=== PATIENT | female | born 1980 | race Caucasian/White ===

== ENCOUNTER 2017-11-05 22:38 | Emergency (ER) | payer MEDICAID, MEDICARE ==
[~2017-11-05] VITALS: Ht 170.2 cm; Wt 204.1 kg
[2017-11-05 22:42] VITALS: BP 157/83
[2017-11-05] MEDS ORDERED: DECADRON IH STA (23:12)
[2017-11-05] MEDS ORDERED: DUONEB 0.5 MG-3 MG/3 ML SOLN IH STA (23:12)
--- NOTE | 2017-11-05 23:17 | ER.PDOC ---
General Chief Complaint: Dyspnea/Respdistress Stated Complaint: DYSPNEA Time seen by MD: 23:00 Source: patient Exam Limitations: no limitations History of Present Illness Initial Comments Pt morbidly obese, started with severe dyspnea about 1 week ago, cough no expectoration Timing/Duration: 1 week Severity: severe Activities at Onset: none Prior Episodes/Possible Cause: frequent episodes Allergies: Coded Allergies: cephalexin (Verified Allergy, Unknown, RESP FAILURE, 10/29/17) fluoxetine (Verified Allergy, Unknown, SWELLING, 10/29/17) sertraline (Verified Allergy, Unknown, SWELLING, 10/29/17) sulfamethoxazole (Verified Allergy, Unknown, SWELLING, 10/29/17) trimethoprim (Verified Allergy, Unknown, SWELLING, 10/29/17) Past Medical History Medical History: asthma, high cholesterol, hypertension, thyroid disease Surgical History: cholecystectomy, tonsillectomy LMP (females 10-50): 3 weeks Social History Smoking: non-smoker Alcohol Use: none Drug Use: none Review of Systems Constitutional: no symptoms reported EENTM: no symptoms reported Respiratory: see HPI Cardiovascular: no symptoms reported Gastrointestinal: no symptoms reported Genitourinary: no symptoms reported Musculoskeletal: no symptoms reported Skin: no symptoms reported Psychiatric/Neurological: no symptoms reported Endocrine: no symptoms reported Hematologic/Lymphatic: no symptoms reported Physical Exam General Appearance: Mild Distress HEENT: PERRL/EOMI, Normal ENT Inspection, TMs Normal, Pharynx Normal Neck: Non-Tender, Full Range of Motion, Supple, Normal Inspection Respiratory: decreased breath sounds, rhonchi (bilaterally) Cardiovascular: Normal Peripheral Pulses, Regular Rate, Rhythm, No Edema, No Gallop, No JVD, No Murmur Gastrointestinal: Normal Bowel Sounds, No Organomegaly, No Pulsatile Mass, Non Tender, Soft 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, No Motor/Sensory Deficits, Alert, Normal Mood/Affect, Oriented x 3 Skin: Normal Color, Warm/Dry Results/Orders Results/Orders Laboratory Tests Test 11/05/17 23:35 11/06/17 00:39 White Blood Count 8.3 10^3/uL (4.5-11.0) Red Blood Count 4.72 10^6/uL (4.00-5.20) Hemoglobin 14.0 g/dL (12.0-15.0) Hematocrit 44.6 % (36.0-46.0) Mean Corpuscular Volume 94.5 fL (78-100) Mean Corpuscular Hemoglobin 29.7 pg (26-34) Mean Corpuscular Hemoglobin Concent 31.4 g/dL (33-37) Red Cell Distribution Width 15.8 % (11.5-14.5) Platelet Count 262 10^3/uL (150-400) Mean Platelet Volume 9.7 fL (7.8-11.0) Neutrophils (%) (Auto) 74.1 % (41.0-85.0) Lymphocytes (%) (Auto) 17.1 % (24.0-44.0) Monocytes (%) (Auto) 7.9 % (5.0-12.0) Neutrophils # (Auto) 6.1 10^3/uL (1.8-7.7) Lymphocytes # (Auto) 1.4 10^3/uL (1.0-4.8) Monocytes # (Auto) 0.7 10^3/uL (0.3-0.8) Absolute Immature Granulocyte (auto 0.02 10^3 u/L (0-2) Eosinophils % 0.6 % (0.0-5.0) Basophils % 0.1 % (0.0-0.2) Basophils # 0.0 10^3/uL (0.0-0.1) Eosinophil Count 0.1 10^3/uL (0.0-0.2) Sodium Level 141 mmol/L (132-145) Potassium Level 4.0 mmol/L (3.6-5.2) Chloride Level 103.0 mmol/L (96-109) Carbon Dioxide Level 30.4 mmol/L (20.0-32) Anion Gap 11.6 Blood Urea Nitrogen 7 mg/dL (7-18) Creatinine 0.69 mg/dL (0.59-1.40) Estimated GFR () 117.2 (>/=60) BUN/Creatinine Ratio 10.0 Glucose Level 146 mg/dL (70-110) Calcium Level 8.6 mg/dL (8.4-10.5) Total Bilirubin 0.3 mg/dL (0.2-1.0) Aspartate Amino Transf (AST/SGOT) 18 U/L (0-35) Alanine Aminotransferase (ALT/SGPT) 29 U/L (12-78) Alkaline Phosphatase 66 U/L (50-136) Total Creatine Kinase 22 U/L (26-192) Creatine Kinase MB < 0.5 ng/mL (0.5-3.6) Total Protein 6.9 g/dL (6.4-8.2) Albumin 3.1 g/dL (3.4-5.0) Globulin 3.8 Percent Immature Gran (Cell Imm) 0.20 % (0.00-0.50) Blood Gas Sample Site RR Blood Gas pH 7.375 (7.350-7.450) Blood Gas PCO2 45.7 mmHg (35.0-45.0) Blood Gas PO2 57.5 mmHg (75.0-100.0) Blood Gas HCO3 26.1 mmol/L (22.0-26.0) Blood Gas Base Excess 0.5 mmol/L (-2.0-2.0) Lopez Test POSITIVE Arterial Blood Oxygen Saturation 89.5 % (95-) Carboxyhemoglobin 3.6 % (0.5-1.5) Methemoglobin 0.2 % (0.2-0.6) Total Hemoglobin 14.8 % (13.5-17.5) Lactic Acid (Blood Gas) 2.4 MMOL/L (0.5-1.0) Blood Gas Temperature 37.0 Oxygen Delivery Method (LAB) NASAL CANNULA FiO2 28 % (20-101) Bicarbonate 27.5 mmol/L (23-27) Administered Medications Medications (Trade) Dose Ordered Sig/Marli Route PRN Reason Start Time Stop Time Status Last Admin Dose Admin Albuterol/ Ipratropium (Duoneb 0.5 Mg-3 Mg/3 ml Soln) 3 ml STAT STAT IH 11/05/17 23:12 11/05/17 23:15 DC 11/05/17 23:36 Dexamethasone Sodium Phosphate (Decadron) 4 mg STAT STAT IH 11/05/17 23:12 11/05/17 23:15 DC 11/05/17 23:36 Ketorolac Tromethamine (Toradol) 60 mg OT ONCE IM 11/06/17 00:30 11/06/17 00:31 DC 11/06/17 00:15 Departure Time of Disposition: 01:33 Disposition: 01 HOME, SELF-CARE Impression: Primary Impression: Dyspnea Additional Impressions: Bronchitis Hypoxia Morbid (severe) obesity with alveolar hypoventilation Condition: Stable Referrals: NAE ODONNELL MD (PCP) PRIMARY CARE PROVIDER Duration or Time Spent with Pa: 25 Problem Qualifiers NILA PEDRAZA MD Nov 05, 2017 23:17
[2017-11-05 23:21] VITALS: BP 144/70
[2017-11-05] MEDS ORDERED: DUONEB 0.5 MG-3 MG/3 ML SOLN IH ONE (23:23)
[2017-11-05] MEDS ORDERED: DECADRON ONE (23:31)
[2017-11-05 23:40] LABS: BASOPHIL % 0.1 % (0.0-0.2); EOSINOPHIL # 0.1 10^3/uL (0.0-0.2); EOSINOPHIL % 0.6 % (0.0-5.0); LYMPHOCYTES # 1.4 10^3/uL (1.0-4.8); LYMPHOCYTES % 17.1 % (24.0-44.0); MEAN CELL HGB 29.7 pg (26-34); MEAN CELL HGB CONCENTRATION 31.4 g/dL (33-37); MEAN CORP VOLUME 94.5 fL (78-100); MEAN PLATELET VOLUME 9.7 fL (7.8-11.0); MONOCYTES # 0.7 10^3/uL (0.3-0.8); MONOCYTES % 7.9 % (5.0-12.0); NEUTROPHIL # 6.1 10^3/uL (1.8-7.7); NEUTROPHILS % 74.1 % (41.0-85.0); RED CELL DISTRIBUTION WIDTH 15.8 % (11.5-14.5); WHITE BLOOD CELL 8.3 10^3/uL (4.5-11.0)
--- NOTE | 2017-11-05 23:50 | NUR ---
RT RT GIVING BREATHING TX AT THIS TIME.
[2017-11-06 00:10] LABS: ALANINE AMINOTRANSFERASE(ML) 29 U/L (12-78); ALKALINE PHOSPHATASE 66 U/L (50-136); ASPARTATE AMINO TRANSFERASE 18 U/L (0-35); CALCIUM 8.6 mg/dL (8.4-10.5); CARBON DIOXIDE 30.4 mmol/L (20.0-32); GLUCOSE 146 mg/dL (70-110)
--- NOTE | 2017-11-06 00:11 | DIREP ---
PROCEDURE:CHEST 1 VIEW COMPARISON:[facility], CR, XRAY CHEST SINGLE VW, 10/29/2017, 03:30 PM. INDICATIONS:Dyspnea FINDINGS: LUNGS/PLEURA:No consolidation. No effusion. No lateral. VASCULATURE:Normal. Unremarkable pulmonary vasculature. CARDIAC:Borderline cardiomegaly MEDIASTINUM:Normal. No visible mass or adenopathy. BONES:Normal. No fracture or visible bony lesion. OTHER:Negative. CONCLUSION:No infiltrate or effusion. Borderline cardiomegaly. Dictated by: Hector Lin MD on 11/06/2017 at 00:08 AM
[2017-11-06] MEDS ORDERED: TORADOL ONE (00:13)
[2017-11-06 00:22] VITALS: BP 144/95
[2017-11-06] MEDS ORDERED: TORADOL IM ONE (00:30)
[2017-11-06 01:00] LABS: ABG PCO2 45.7 mmHg (35.0-45.0); ABG PH 7.375 (7.350-7.450); BE(B) 0.5 mmol/L (-2.0-2.0); HCO3act 26.1 mmol/L (22.0-26.0); pO2 57.5 mmHg (75.0-100.0)
--- NOTE | 2017-11-06 01:05 | NUR ---
O2 DR. PEOPLES INCREASED O2 TO 4LPM PER NC
[2017-11-06 01:22] VITALS: BP 125/76
[2017-11-06] MEDS ORDERED: CLEOCIN PO STA (01:58)
[2017-11-06] MEDS ORDERED: CLEOCIN ONE (01:58)
--- NOTE | 2017-11-06 02:00 | NUR ---
DISCHARGE DISCHARGE INSTRUCTIONS GIVEN TO PATIENT AND MOTHER. PATIENT WILL NEED O2 TO WEAR HOME HER PORTABLE TANK IS AT HOME. PATIENT STATES THAT SHE IS UNABLE TO WALK AND SHE IS UNABLE TO SIT UPRIGHT ON HER OWN. INSTRUCTED THAT WE WOULD HAVE TO CALL EMS TO TRANSFER BACK HOME.
[2017-11-06 02:08] VITALS: BP 144/71
--- NOTE | 2017-11-06 02:27 | NUR ---
[facility] DISPATCHED
--- NOTE | 2017-11-06 02:40 | NUR ---
[facility] ARRIVED TO TRANSPORT PATIENT BACK HOME
[2017-11-06 02:44] VITALS: BP 144/71
== END 2017-11-06 01:55 | disposition home or self-care (01) ==
LOC: ER 22:38
DX: J40 Bronchitis, not specified as acute or chronic (principal); E66.2 Morbid (severe) obesity with alveolar hypoventilation; E78.00 Pure hypercholesterolemia, unspecified; R09.02 Hypoxemia; I10 Essential (primary) hypertension; E07.9 Disorder of thyroid, unspecified; Z88.2 Allergy status to sulfonamides; Z90.49 Acquired absence of other specified parts of digestive tract; Z90.89 Acquired absence of other organs; Z68.45 Body mass index [BMI] 70 or greater, adult
CPT/HCPCS: 36415 ×2; 36600; 71045; 80053; 82550; 82553; 82803; 85025; 94640; 96372; 99285; J1100; J1885; J7620

== ENCOUNTER 2017-11-07 20:13 | Emergency (ER) | payer MEDICARE ==
[~2017-11-07] VITALS: Ht 170.2 cm; Wt 204.1 kg
[2017-11-07 20:20] VITALS: BP 170/86
[2017-11-07 20:49] LABS: BASOPHIL % 0.3 % (0.0-0.2); EOSINOPHIL # 0.1 10^3/uL (0.0-0.2); EOSINOPHIL % 0.6 % (0.0-5.0); HEMOGLOBIN 14.4 g/dL (12.0-15.0); LYMPHOCYTES # 2.7 10^3/uL (1.0-4.8); LYMPHOCYTES % 26.5 % (24.0-44.0); MEAN CELL HGB 29.5 pg (26-34); MEAN CELL HGB CONCENTRATION 30.7 g/dL (33-37); MEAN CORP VOLUME 96.1 fL (78-100); MEAN PLATELET VOLUME 9.8 fL (7.8-11.0); NEUTROPHIL # 6.4 10^3/uL (1.8-7.7); NEUTROPHILS % 61.9 % (41.0-85.0); RED CELL DISTRIBUTION WIDTH 16.5 % (11.5-14.5); WHITE BLOOD CELL 10.3 10^3/uL (4.5-11.0)
--- NOTE | 2017-11-07 20:49 | NUR ---
Oxygen Places pt. on [address] per Dr. Vitaliy solitario.
[2017-11-07 21:14] VITALS: BP 132/78
[2017-11-07 21:17] LABS: ALANINE AMINOTRANSFERASE(ML) 47 U/L (12-78); ALKALINE PHOSPHATASE 74 U/L (50-136); ASPARTATE AMINO TRANSFERASE 31 U/L (0-35); CALCIUM 8.7 mg/dL (8.4-10.5); CARBON DIOXIDE 27.8 mmol/L (20.0-32); GLUCOSE 156 mg/dL (70-110)
[2017-11-07 21:18] LABS: ABG PCO2 49.7 mmHg (35.0-45.0); ABG PH 7.348 (7.350-7.450); BE(B) 0.3 mmol/L (-2.0-2.0); HCO3act 26.7 mmol/L (22.0-26.0); pO2 60.4 mmHg (75.0-100.0)
--- NOTE | 2017-11-07 21:57 | DIREP ---
PROCEDURE:CHEST 2 VIEWS COMPARISON:[facility], CR, XRAY CHEST SINGLE VW, 11/05/2017, 10:47 PM. INDICATIONS:SOB FINDINGS: LUNGS/PLEURA:Bibasilar airspace opacities, right greater than left. Findings compatible with pulmonary edema versus developing infiltrates. VASCULATURE:Mild central pulmonary vascular congestion CARDIAC:Normal. No cardiac silhouette abnormality or cardiomegaly. MEDIASTINUM:Normal. No visible mass or adenopathy. BONES:Normal. No fracture or visible bony lesion. OTHER:Negative. CONCLUSION:Findings most compatible with volume overload. Cannot exclude developing infiltrates. Dictated by: Hever Glover DO on 11/07/2017 at 09:55 PM
--- NOTE | 2017-11-07 22:20 | ER.PDOC ---
General Chief Complaint: Dyspnea/Respdistress Stated Complaint: SOB Time seen by MD: 21:00 Source: patient, family Exam Limitations: no limitations History of Present Illness Initial Comments Pt with increasing SOB, morbidly obese, treated with Clindamycin at home Timing/Duration: 1 week Severity: severe Prior Episodes/Possible Cause: frequent episodes Modifying Factors: improves with activity Allergies: Coded Allergies: cephalexin (Verified Allergy, Unknown, RESP FAILURE, 10/29/17) fluoxetine (Verified Allergy, Unknown, SWELLING, 10/29/17) sertraline (Verified Allergy, Unknown, SWELLING, 10/29/17) sulfamethoxazole (Verified Allergy, Unknown, SWELLING, 10/29/17) trimethoprim (Verified Allergy, Unknown, SWELLING, 10/29/17) Past Medical History Medical History: diabetes, hypertension Surgical History: cholecystectomy, tonsillectomy LMP (females 10-50): 3 weeks Social History Smoking: quit less than 1 year Alcohol Use: none Drug Use: none Review of Systems Constitutional: no symptoms reported EENTM: no symptoms reported Respiratory: see HPI Cardiovascular: no symptoms reported Gastrointestinal: no symptoms reported Genitourinary: no symptoms reported Musculoskeletal: no symptoms reported Skin: no symptoms reported Psychiatric/Neurological: no symptoms reported Endocrine: no symptoms reported Hematologic/Lymphatic: no symptoms reported Physical Exam General Appearance: Lethargic, Mild Distress HEENT: PERRL/EOMI, Normal ENT Inspection, TMs Normal, Pharynx Normal Neck: Non-Tender, Full Range of Motion, Supple, Normal Inspection Respiratory: decreased breath sounds, rhonchi (bilaterally) Cardiovascular: Normal Peripheral Pulses, Regular Rate, Rhythm, No Edema, No Gallop, No JVD, No Murmur Gastrointestinal: Normal Bowel Sounds, No Organomegaly, No Pulsatile Mass, Non Tender, Soft Extremities: Normal Range of Motion, Non-Tender, Normal Inspection, No Pedal Edema, No Calf Tenderness, Normal Capillary Refill 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, No Motor/Sensory Deficits, Alert, Normal Mood/Affect, Oriented x 3 Skin: Normal Color, Warm/Dry Lymphatic: No Adenopathy Results/Orders Results/Orders Laboratory Tests Test 11/07/17 20:45 11/07/17 21:10 White Blood Count 10.3 10^3/uL (4.5-11.0) Red Blood Count 4.88 10^6/uL (4.00-5.20) Hemoglobin 14.4 g/dL (12.0-15.0) Hematocrit 46.9 % (36.0-46.0) Mean Corpuscular Volume 96.1 fL (78-100) Mean Corpuscular Hemoglobin 29.5 pg (26-34) Mean Corpuscular Hemoglobin Concent 30.7 g/dL (33-37) Red Cell Distribution Width 16.5 % (11.5-14.5) Platelet Count 291 10^3/uL (150-400) Mean Platelet Volume 9.8 fL (7.8-11.0) Neutrophils (%) (Auto) 61.9 % (41.0-85.0) Lymphocytes (%) (Auto) 26.5 % (24.0-44.0) Monocytes (%) (Auto) 10.0 % (5.0-12.0) Neutrophils # (Auto) 6.4 10^3/uL (1.8-7.7) Lymphocytes # (Auto) 2.7 10^3/uL (1.0-4.8) Monocytes # (Auto) 1.0 10^3/uL (0.3-0.8) Absolute Immature Granulocyte (auto 0.07 10^3 u/L (0-2) Eosinophils % 0.6 % (0.0-5.0) Basophils % 0.3 % (0.0-0.2) Basophils # 0.0 10^3/uL (0.0-0.1) Eosinophil Count 0.1 10^3/uL (0.0-0.2) Prothrombin Time 9.6 SEC (9.8-11.9) Prothrombin Time INR (Non-Therap) 1.0 Activated Partial Thromboplast Time 26.1 SEC (24.67-30.72) D-Dimer 0.31 mg/L (0.19-0.49) Sodium Level 140 mmol/L (132-145) Potassium Level 3.7 mmol/L (3.6-5.2) Chloride Level 102.0 mmol/L (96-109) Carbon Dioxide Level 27.8 mmol/L (20.0-32) Anion Gap 13.9 Blood Urea Nitrogen 10 mg/dL (7-18) Creatinine 0.79 mg/dL (0.59-1.40) Estimated GFR () 100.2 (>/=60) BUN/Creatinine Ratio 12.0 Glucose Level 156 mg/dL (70-110) Calcium Level 8.7 mg/dL (8.4-10.5) Total Bilirubin 0.3 mg/dL (0.2-1.0) Aspartate Amino Transf (AST/SGOT) 31 U/L (0-35) Alanine Aminotransferase (ALT/SGPT) 47 U/L (12-78) Alkaline Phosphatase 74 U/L (50-136) Total Creatine Kinase 529 U/L (26-192) Creatine Kinase MB 0.9 ng/mL (0.5-3.6) Troponin I < 0.02 ng/mL (0.00-0.05) Pro-B-Type Natriuretic Peptide 440 pg/mL (0-125) Total Protein 7.8 g/dL (6.4-8.2) Albumin 3.5 g/dL (3.4-5.0) Globulin 4.3 Percent Immature Gran (Cell Imm) 0.70 % (0.00-0.50) Blood Gas Sample Site RT RADIAL ARTERY Blood Gas pH 7.348 (7.350-7.450) Blood Gas PCO2 49.7 mmHg (35.0-45.0) Blood Gas PO2 60.4 mmHg (75.0-100.0) Blood Gas HCO3 26.7 mmol/L (22.0-26.0) Blood Gas Base Excess 0.3 mmol/L (-2.0-2.0) Lopez Test POSITIVE Arterial Blood Oxygen Saturation 90.5 % (95-) Deoxyhemoglobin 9.1 % (0.2-0.6) Carboxyhemoglobin 3.6 % (0.5-1.5) Methemoglobin 0.2 % (0.2-0.6) Total Hemoglobin 15.4 % (13.5-17.5) Total Oxygen Concentration 18.8 % (13.5-17.5) Lactic Acid (Blood Gas) 2.6 MMOL/L (0.5-1.0) Blood Gas Temperature 37 FiO2 28 % (20-101) Bicarbonate 28.2 mmol/L (23-27) Administered Medications Medications (Trade) Dose Ordered Sig/Marli Route PRN Reason Start Time Stop Time Status Last Admin Dose Admin Dexamethasone Sodium Phosphate (Decadron) 8 mg STAT STAT IM 11/07/17 22:14 11/07/17 22:18 DC 11/07/17 23:02 Levofloxacin/ Dextrose 150 ml @ 100 mls/hr OT ONCE IV 11/07/17 22:30 11/07/17 23:59 DC 11/07/17 22:54 Albuterol/ Ipratropium (Duoneb 0.5 Mg-3 Mg/3 ml Soln) 3 ml STAT STAT IH 11/07/17 22:14 11/07/17 22:18 DC 11/07/17 22:57 Dexamethasone Sodium Phosphate (Decadron) 4 mg STAT STAT IH 11/07/17 22:14 11/07/17 22:18 DC 11/07/17 22:57 Meperidine HCl (Demerol) 50 mg STAT STAT IM 11/07/17 23:51 11/07/17 23:52 DC 11/07/17 23:56 Departure Time of Disposition: 00:17 Disposition: 01 HOME, SELF-CARE Impression: Primary Impression: Dyspnea Additional Impression: Bronchitis Condition: Stable Patient Instructions: Shortness of Breath, [id number] Referrals: NAE ODONNELL MD (PCP) PRIMARY CARE PROVIDER Duration or Time Spent with Pa: 30 Problem Qualifiers NILA PEDRAZA MD Nov 07, 2017 22:20
[2017-11-07] MEDS ORDERED: LEVAQUIN 150 ML IV ONE (22:38)
[2017-11-07] MEDS ORDERED: DUONEB 0.5 MG-3 MG/3 ML SOLN IH ONE (22:40)
[2017-11-07 22:50] VITALS: BP 127/83
[2017-11-07] MEDS ORDERED: DECADRON ONE ×2 (22:53→22:55)
[2017-11-07] MEDS: LEVAQUIN 150 ML IV ONE (22:54)
[2017-11-07] MEDS: DECADRON IH STA (22:57)
[2017-11-07] MEDS: DUONEB 0.5 MG-3 MG/3 ML SOLN IH STA (22:57)
[2017-11-07] MEDS: DECADRON IM STA (23:02)
[2017-11-07 23:51] VITALS: BP 138/86
[2017-11-07] MEDS ORDERED: DEMEROL ONE (23:52)
[2017-11-07] MEDS: DEMEROL IM STA (23:56)
[2017-11-08 00:22] VITALS: BP 131/93
--- NOTE | 2017-11-08 00:22 | NUR ---
IV IV TO LEFT AC REMOVED CATHETER INTACT HELD PRESSURE APPLIED BANDAID NO BLEEDING
[2017-11-08 01:03] VITALS: BP 131/93
== END 2017-11-08 00:36 | disposition home or self-care (01) ==
LOC: ER 20:13
DX: J40 Bronchitis, not specified as acute or chronic (principal); E11.9 Type 2 diabetes mellitus without complications; I10 Essential (primary) hypertension; E66.01 Morbid (severe) obesity due to excess calories; Z90.49 Acquired absence of other specified parts of digestive tract; Z90.89 Acquired absence of other organs; Z87.891 Personal history of nicotine dependence; Z88.1 Allergy status to other antibiotic agents; Z88.2 Allergy status to sulfonamides; Z88.8 Allergy status to other drugs, medicaments and biological substances
CPT/HCPCS: 36415; 36600; 71046; 80053; 82550; 82553; 82803; 83880; 84484; 85025; 85379; 85610; 85730; 94640; 96365; 96372; 99285; J1100 ×2; J1956; J2175; J7620

== ENCOUNTER 2017-11-24 14:12 | Emergency (ER) | payer MEDICARE ==
[~2017-11-24] VITALS: Ht 170.2 cm; Wt 227.2 kg
--- NOTE | 2017-11-24 14:15 | NUR ---
ARRIVAL PATIETN STATES THAT SHE HAS BEEN DESATING SINCE YESTERDAY, ONLY BEEN SATING 50 AT HOME, PATIENT STATES THAT SHE HAS BEEN DYSPNIC AND THAT SHE HAS NEVER BEEN DIAGNOSED WITH CHF OR COPD, PATIENT STATES THAT SHE IS 500LBS. ASSESSMENT COMPLETED, AWAITING MD GUERRA, CONNECTED TO ALL MONITORS.
[2017-11-24 14:19] VITALS: BP 150/78
[2017-11-24 14:27] VITALS: BP 161/87
[2017-11-24] MEDS ORDERED: TORADOL IM STA (14:33)
--- NOTE | 2017-11-24 14:35 | NUR ---
BLOOD PRESSURE PT WILL NOT KEEP BLOOD PRESSURE CUFF ON.
--- NOTE | 2017-11-24 14:36 | PCM.EKG ---
[facility] Test Date: 2017-11-24 Test Time: 14:40:35 Pat Name: CAROLINA RIBERA [id number] Room: Gender: F Customer Care Agent: : 1980 Requested By: CHRISTY SHORE Order Number: [id number] Reading MD: Measurements Intervals [place] Rate: 103 P: 51 NH: 174 QRS: 90 QRSD: 94 T: 33 QT: 350 QTc: 458 Interpretive Statements Sinus tachycardia with premature supraventricular complexes Otherwise normal ECG Compared to ECG 10/29/2017 16:32:14 Atrial premature complex(es) now present Sinus rhythm no longer present Please click the below link to view image of tracing.
--- NOTE | 2017-11-24 14:39 | ER.PDOC ---
General Chief Complaint: Dyspnea/Respdistress Stated Complaint: SOB Time seen by MD: 14:35 Source: patient Exam Limitations: no limitations History of Present Illness Initial Comments SOB and low Oxygen for past few days. Uses 2L Oxygen at home. Also had left leg pain. No fever or chills. Took a breathing treatment prior to coming to the ED. Severity: moderate Prior Episodes/Possible Cause: occasional episodes, chronic episodes Modifying Factors: improves with oxygen Associated Symptoms: denies symptoms Prior symptoms/Treatment: Similar symptoms previous, Recenly Seen, Treated by Doctor Allergies: Coded Allergies: cephalexin (Verified Allergy, Unknown, RESP FAILURE, 10/29/17) fluoxetine (Verified Allergy, Unknown, SWELLING, 10/29/17) sertraline (Verified Allergy, Unknown, SWELLING, 10/29/17) sulfamethoxazole (Verified Allergy, Unknown, SWELLING, 10/29/17) trimethoprim (Verified Allergy, Unknown, SWELLING, 10/29/17) Past Medical History Medical History: hypertension, other Surgical History: cholecystectomy LMP (females 10-50): last week Social History Smoking: non-smoker Alcohol Use: none Drug Use: none Review of Systems Constitutional: no symptoms reported, other (headache) EENTM: no symptoms reported Respiratory: see HPI Cardiovascular: no symptoms reported Gastrointestinal: no symptoms reported Genitourinary: no symptoms reported All Other Systems: Reviewed and Negative Physical Exam General Appearance: No Apparent Distress, Obese (mobid) Neck: Non-Tender, Full Range of Motion, Supple, Normal Inspection Respiratory: chest non-tender, normal breath sounds, no respiratory distress, decreased breath sounds Cardiovascular: Normal Peripheral Pulses, Regular Rate, Rhythm, No Edema, No Gallop, No JVD, No Murmur Gastrointestinal: Normal Bowel Sounds, No Organomegaly, No Pulsatile Mass, Non Tender, Soft Extremities: Normal Range of Motion, Other (left leg tender and mildly warm to touch.) 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, No Motor/Sensory Deficits, Alert, Normal Mood/Affect, Oriented x 3 Lymphatic: No Adenopathy Results/Orders Results/Orders Laboratory Tests Test 11/24/17 14:38 11/24/17 14:41 White Blood Count 8.3 10^3/uL (4.5-11.0) Red Blood Count 4.62 10^6/uL (4.00-5.20) Hemoglobin 13.7 g/dL (12.0-15.0) Hematocrit 46.4 % (36.0-46.0) Mean Corpuscular Volume 100.4 fL (78-100) Mean Corpuscular Hemoglobin 29.7 pg (26-34) Mean Corpuscular Hemoglobin Concent 29.5 g/dL (33-37) Red Cell Distribution Width 18.1 % (11.5-14.5) Platelet Count 280 10^3/uL (150-400) Mean Platelet Volume 9.4 fL (7.8-11.0) Neutrophils (%) (Auto) 62.0 % (41.0-85.0) Lymphocytes (%) (Auto) 28.4 % (24.0-44.0) Monocytes (%) (Auto) 6.7 % (5.0-12.0) Neutrophils # (Auto) 5.1 10^3/uL (1.8-7.7) Lymphocytes # (Auto) 2.3 10^3/uL (1.0-4.8) Monocytes # (Auto) 0.6 10^3/uL (0.3-0.8) Absolute Immature Granulocyte (auto 0.03 10^3 u/L (0-2) Eosinophils % 2.1 % (0.0-5.0) Basophils % 0.4 % (0.0-0.2) Basophils # 0.0 10^3/uL (0.0-0.1) Eosinophil Count 0.2 10^3/uL (0.0-0.2) Prothrombin Time 9.4 SEC (9.8-11.9) Prothrombin Time INR (Non-Therap) 0.9 Activated Partial Thromboplast Time 22.8 SEC (24.67-30.72) D-Dimer 0.62 mg/L (0.19-0.49) Sodium Level 139 mmol/L (132-145) Potassium Level 4.1 mmol/L (3.6-5.2) Chloride Level 101.0 mmol/L (96-109) Carbon Dioxide Level 35.7 mmol/L (20.0-32) Anion Gap 6.4 Blood Urea Nitrogen 8 mg/dL (7-18) Creatinine 0.77 mg/dL (0.59-1.40) Estimated GFR () 103.2 (>/=60) BUN/Creatinine Ratio 10.0 Glucose Level 207 mg/dL (70-110) Calcium Level 8.1 mg/dL (8.4-10.5) Total Bilirubin 0.3 mg/dL (0.2-1.0) Aspartate Amino Transf (AST/SGOT) 23 U/L (0-35) Alanine Aminotransferase (ALT/SGPT) 44 U/L (12-78) Alkaline Phosphatase 65 U/L (50-136) Total Creatine Kinase 24 U/L (26-192) Creatine Kinase MB < 0.5 ng/mL (0.5-3.6) Troponin I < 0.02 ng/mL (0.00-0.05) Pro-B-Type Natriuretic Peptide 456 pg/mL (0-125) Total Protein 6.7 g/dL (6.4-8.2) Albumin 3.0 g/dL (3.4-5.0) Globulin 3.7 Percent Immature Gran (Cell Imm) 0.40 % (0.00-0.50) Blood Gas Sample Site RB Blood Gas pH 7.290 (7.350-7.450) Blood Gas PCO2 69.0 mmHg (35.0-45.0) Blood Gas PO2 49.8 mmHg (75.0-100.0) Blood Gas HCO3 32.6 mmol/L (22.0-26.0) Blood Gas Base Excess 3.7 mmol/L (-2.0-2.0) Lopez Test N/A Arterial Blood Oxygen Saturation 82.6 % (95-) Deoxyhemoglobin 16.4 % (0.2-0.6) Carboxyhemoglobin 5.7 % (0.5-1.5) Methemoglobin 0.3 % (0.2-0.6) Total Hemoglobin 14.7 % (13.5-17.5) Total Oxygen Concentration 16.0 % (13.5-17.5) Lactic Acid (Blood Gas) 3.5 MMOL/L (0.5-1.0) Blood Gas Temperature 37 Oxygen Delivery Method (LAB) NASAL CANNULA FiO2 28 % (20-101) Bicarbonate 34.7 mmol/L (23-27) Administered Medications Medications (Trade) Dose Ordered Sig/Marli Route PRN Reason Start Time Stop Time Status Last Admin Dose Admin Ketorolac Tromethamine (Toradol) 60 mg STAT STAT IM 11/24/17 14:33 11/24/17 14:35 DC 11/24/17 14:58 Albuterol/ Ipratropium (Duoneb 0.5 Mg-3 Mg/3 ml Soln) 3 ml STAT STAT IH 11/24/17 15:18 11/24/17 15:19 DC 11/24/17 15:44 Dexamethasone Sodium Phosphate (Decadron) 4 mg STAT STAT IH 11/24/17 15:18 11/24/17 15:19 DC 11/24/17 15:44 Progress Progress Considered giving patient Lovenox but decided to with hold it since she is complaining of headache and left lower extremity Venous Doppler is negative for a DVT. This is the extremity with pain. Discussed with Dr. Parikh who declined admitting patient because she will need CTA Chest. Departure Time of Disposition: 17:03 Disposition: 02 XFER SHT-TRM HOSP Impression: Primary Impression: Acute respiratory failure Additional Impression: Morbid obesity Condition: Stable Referrals: NAE ODONNELL MD (PCP) PRIMARY CARE PROVIDER Comments Transfer to [facility] ED for Dr. Price. Duration or Time Spent with Pa: 60 mins Critical Care Note Total Time (mins): 60 Problem Qualifiers Primary Impression: Acute respiratory failure Respiratory failure complication: hypoxia and hypercapnia Qualified Codes: J96.01 - Acute respiratory failure with hypoxia; J96.02 - Acute respiratory failure with hypercapnia CHRISTY SHORE MD Nov 24, 2017 14:39
[2017-11-24 14:52] LABS: HCO3act 32.6 mmol/L (22.0-26.0); pO2 49.8 mmHg (75.0-100.0)
[2017-11-24 14:52] LABS: BASOPHIL % 0.4 % (0.0-0.2); EOSINOPHIL # 0.2 10^3/uL (0.0-0.2); EOSINOPHIL % 2.1 % (0.0-5.0); HEMOGLOBIN 13.7 g/dL (12.0-15.0); LYMPHOCYTES # 2.3 10^3/uL (1.0-4.8); LYMPHOCYTES % 28.4 % (24.0-44.0); MEAN CELL HGB 29.7 pg (26-34); MEAN CELL HGB CONCENTRATION 29.5 g/dL (33-37); MEAN CORP VOLUME 100.4 fL (78-100); MEAN PLATELET VOLUME 9.4 fL (7.8-11.0); MONOCYTES # 0.6 10^3/uL (0.3-0.8); MONOCYTES % 6.7 % (5.0-12.0); NEUTROPHIL # 5.1 10^3/uL (1.8-7.7); RED CELL DISTRIBUTION WIDTH 18.1 % (11.5-14.5); WHITE BLOOD CELL 8.3 10^3/uL (4.5-11.0)
[2017-11-24 14:53] LABS: BE(B) 3.7 mmol/L (-2.0-2.0)
[2017-11-24] MEDS ORDERED: TORADOL ONE (14:53)
--- NOTE | 2017-11-24 15:10 | DIREP ---
PROCEDURE:CHEST 1 VIEW COMPARISON:[facility], CR, XRAY CHEST 2 VWS, 11/07/2017, 09:26 PM. INDICATIONS:SOB FINDINGS: LUNGS/PLEURA:Limited by underpenetration, likely secondary to patient body habitus and portable technique. There does appear to be mild diffuse interstitial prominence throughout the bilateral hemithoraces. No definite confluent airspace consolidation is identified. There is no sizable pleural effusion or appreciable pneumothorax. VASCULATURE:Mild fullness of the central hilar vasculature. CARDIAC:The heart is not significantly enlarged for AP technique. MEDIASTINUM:Mediastinal contours are within normal limits. BONES:No acute abnormality. OTHER:Negative. CONCLUSION: 1. Limited study. Mild diffuse interstitial prominence with fullness of the central hilar vasculature does raise concern for potential CHF/fluid overload. Please correlate with volume status. Dictated by: Dmitriy Couch M.D. On 11/24/2017 at 03:07 PM
[2017-11-24] MEDS ORDERED: DUONEB 0.5 MG-3 MG/3 ML SOLN IH STA (15:18)
[2017-11-24] MEDS ORDERED: DECADRON IH STA (15:18)
[2017-11-24 15:24] LABS: ALANINE AMINOTRANSFERASE(ML) 44 U/L (12-78); ALKALINE PHOSPHATASE 65 U/L (50-136); ASPARTATE AMINO TRANSFERASE 23 U/L (0-35); CALCIUM 8.1 mg/dL (8.4-10.5); CARBON DIOXIDE 35.7 mmol/L (20.0-32); GLUCOSE 207 mg/dL (70-110)
[2017-11-24] MEDS ORDERED: DECADRON ONE (15:30)
[2017-11-24] MEDS ORDERED: DUONEB 0.5 MG-3 MG/3 ML SOLN IH ONE (15:30)
--- NOTE | 2017-11-24 15:55 | DIREP ---
PROCEDURE:US DUPLEX EXTREM VEINS UNILATER/LIMITED-LT COMPARISON:None. INDICATIONS:leg pain TECHNIQUE:The left lower extremity was evaluated utilizing conley scale images with segmental compression, color Doppler, and spectral Doppler with respiratory variation and augmentation. There are limitations in examination due to patient size and limited visibility of the vessels. FINDINGS: Common femoral vein:Patent Superficial femoral vein:Patent Popliteal vein:Patent Posterior tibial vein:Patent Peroneal vein:Patent Greater saphenous vein:Patent Waveforms: Within normal limits. CONCLUSION: 1. No DVT identified in the left lower extremity, limited visualization of vessels on this study due to patient size. Dictated by: MARY Physician on 11/24/2017 at 03:47 PM ld
--- NOTE | 2017-11-24 16:08 | NUR ---
DR NGUYEN [facility] WAS LEFT FOR DR NGUYEN TO CALL THE ED
--- NOTE | 2017-11-24 16:12 | NUR ---
DR PATRICK LYNNE MBA ON PHONE WITH DR NGUYEN
[2017-11-24] MEDS ORDERED: ROCEPHIN ONE (16:45)
[2017-11-24] MEDS ORDERED: NS 100ML 100 ML IV ONE (16:45)
[2017-11-24] MEDS ORDERED: ROCEPHIN 1,000 MG in NS 100ML 100 ML IV STA (16:55)
--- NOTE | 2017-11-24 17:01 | NUR ---
[facility] CALL[facility] FOR EMS TO BE NOTIFIED OF TRANSFER
--- NOTE | 2017-11-24 17:16 | NUR ---
[facility] IN THE ED AT THIS TIME
[2017-11-24 17:59] LABS: ABG PH 7.324 (7.350-7.450); BE(B) 4.8 mmol/L (-2.0-2.0); pO2 71.4 mmHg (75.0-100.0)
--- NOTE | 2017-11-24 18:27 | NUR ---
[facility] CALLING [facility] FOR PT TRANSFER.
--- NOTE | 2017-11-24 18:38 | NUR ---
DEPARTING EMS DEPARTING WITH PT FOR TRANSFER AT THIS TIME.
[2017-11-24 18:52] VITALS: BP 161/87
== END 2017-11-24 18:38 | disposition short-term general hospital (02) ==
LOC: ER 14:12
DX: J96.01 Acute respiratory failure with hypoxia (principal); J96.02 Acute respiratory failure with hypercapnia; E66.01 Morbid (severe) obesity due to excess calories; I10 Essential (primary) hypertension; R51 Headache; Z90.49 Acquired absence of other specified parts of digestive tract; Z88.1 Allergy status to other antibiotic agents; Z88.2 Allergy status to sulfonamides; Z88.8 Allergy status to other drugs, medicaments and biological substances; Z68.45 Body mass index [BMI] 70 or greater, adult
CPT/HCPCS: 36415; 36600; 71045; 80053; 82550; 82553; 82803 ×2; 83880; 84484; 85025; 85379; 85610; 85730; 87040 ×2; 93005; 93971; 94640; 94660; 96365; 96372; 99291; J0696; J1100; J1885; J7050; J7620

== ENCOUNTER → 2017-12-29 | Outpatient (CLI) | payer MEDICARE ==
[2017-12-29 19:14] LABS: BILIRUBIN,URINE NEGATIVE (NEGATIVE); UROBILINOGEN,URINE NORMAL (NEGATIVE)
[2017-12-29 19:56] LABS: APPEARANCE,URINE SLIGHTLY HAZY (CLEAR); UA COLOR YELLOW (YELLOW)
== END | disposition home or self-care (01) ==
LOC: LAB 17:54
PROVIDERS: ATTEND Pediatrics
DX: I11.0 Hypertensive heart disease with heart failure (principal); I50.9 Heart failure, unspecified; J96.01 Acute respiratory failure with hypoxia; E11.9 Type 2 diabetes mellitus without complications; E66.01 Morbid (severe) obesity due to excess calories; E07.9 Disorder of thyroid, unspecified; E78.00 Pure hypercholesterolemia, unspecified; R30.0 Dysuria; Z90.49 Acquired absence of other specified parts of digestive tract
CPT/HCPCS: 81000; 87086

== ENCOUNTER → 2018-01-01 | Outpatient (CLI) | payer MEDICARE ==
[2018-01-01 11:39] LABS: BASOPHIL % 0.4 % (0.0-0.2); EOSINOPHIL # 0.2 10^3/uL (0.0-0.2); EOSINOPHIL % 2.3 % (0.0-5.0); HEMOGLOBIN 12.7 g/dL (12.0-15.0); LYMPHOCYTES # 2.1 10^3/uL (1.0-4.8); LYMPHOCYTES % 25.1 % (24.0-44.0); MEAN CELL HGB 29.4 pg (26-34); MEAN CELL HGB CONCENTRATION 29.7 g/dL (33-37); MEAN CORP VOLUME 99.1 fL (78-100); MONOCYTES # 0.5 10^3/uL (0.3-0.8); MONOCYTES % 5.5 % (5.0-12.0); NEUTROPHIL # 5.5 10^3/uL (1.8-7.7); NEUTROPHILS % 66.5 % (41.0-85.0); WHITE BLOOD CELL 8.2 10^3/uL (4.5-11.0)
[2018-01-01 11:55] LABS: CARBON DIOXIDE 33.6 mmol/L (20.0-32)
== END | disposition home or self-care (01) ==
LOC: LAB 11:19
PROVIDERS: ATTEND Nurse Practitioner Family
DX: L03.90 Cellulitis, unspecified (principal)
CPT/HCPCS: 80053; 83880; 85025; 85651; 86140

== ENCOUNTER → 2018-06-22 | Outpatient (CLI) | payer MEDICARE ==
[2018-06-22 12:52] LABS: HEMOGLOBIN 14.5 g/dL (12.0-15.0); MEAN CELL HGB 25.9 pg (26-34); MEAN CELL HGB CONCENTRATION 29.8 g/dL (33-37); MEAN PLATELET VOLUME 9.9 fL (7.8-11.0); RED CELL DISTRIBUTION WIDTH 21.6 % (11.5-14.5); WHITE BLOOD CELL 9.4 10^3/uL (4.5-11.0)
[2018-06-22 13:22] LABS: CALCIUM 8.7 mg/dL (8.4-10.5); CARBON DIOXIDE 33.7 mmol/L (20.0-32)
== END | disposition home or self-care (01) ==
LOC: LAB 12:34
PROVIDERS: ATTEND Nurse Practitioner Family
DX: I50.9 Heart failure, unspecified (principal)
CPT/HCPCS: 80053; 83880; 85027